=== PATIENT | male | born 1995 | race Caucasian/White ===

== ENCOUNTER 2021-11-30 10:13 | Emergency (ER) | payer BC, SELFPAY ==
[2021-11-30 10:27] VITALS: BP 153/99; PULSE 78; RESP 18; TEMP 36.3; O2SAT 100
--- NOTE | 2021-11-30 10:57 | ED.GENADULT ---
HPI - General Adult General Chief complaint: Skin/Abscess/Foreign Body Stated complaint: boil on waistline Source: patient Mode of arrival: ambulatory Limitations: no limitations History of Present Illness HPI narrative: 26 y/o male. PMHx None reported. Presents to [facility] today with acute complaints of a boil located to his lower abdomen for 1 week. Client reports to have always had a hard area there for the past years or two . He states to have been further evaluated by PCP and was advised that he had issues with ingrown and coarse hairs on his abdomen. No fevers. No abdominal pain. No additional areas of integumentary involvement. Patient tells me he had self manipulated area by picking at it , of which has now led to increased tenderness and 'yellow' drainage from site. Non-diabetic. No additional acute c/o illness upon PE. Related Data Allergies Allergy/AdvReac Type Severity Reaction Status Date / Time No Known Allergies Allergy Mild Verified 11/30/21 10:33 Review of Systems Review of Systems: CONSTITUTIONAL: Denies fever, chills, sweats. EYES: Denies visual changes, redness, discharge. ENT: Denies rhinorrhea, congestion, sore throat, otalgia. CARDIOVASCULAR: Denies chest pain, palpitations, edema. RESPIRATORY: Denies dyspnea, wheezing, cough GASTROINTESTINAL: Denies abdominal pain, nausea, vomiting, diarrhea. GENITOURINARY: Denies dysuria, hematuria, abnormal discharge SKIN: Denies rash or itching. Boil to abdomen. MUSCULOSKELETAL: Denies acute back pain, joint pain, or myalgia. NEUROLOGIC: Denies numbness, or focal weakness. PSYCHIATRIC: Denies anxiety or depression. All systems reviewed & are unremarkable except as noted in HPI and below PMFSH Family History Family History Father Diabetes mellitus Other Hypertension Social History Social History Smoking status: Current every day smoker Alcohol intake: current Substance use type: marijuana Exam Narrative: GENERAL: This is a well-nourished, well-developed adult, in no apparent distress. HEAD: normocephalic, atraumatic. EYES: PERRL. Sclera clear/white. EARS: External ears normal, auditory canals clear and without drainage, TMs normal. NOSE: External nose normal. No Rhinorrhea, no obstruction, nares patent. THROAT: Mucous membranes moist, posterior pharynx clear. No exudates. NECK: Neck supple, non-tender without lymphadenopathy, masses or thyromegaly. CARDIOVASCULAR: Regular rate and rhythm without murmurs, gallops, or rubs. RESPIRATORY: Clear to auscultation. Breath sounds equal bilaterally. No wheezes, rales, or rhonchi. GASTROINTESTINAL: Abdomen soft, non-tender, nondistended. Bowel sounds are active. No guarding. SKIN: warm, intact, good texture and turgor. With 1 cm area of Folliculitis located to RT lower abdomen. There is localized surrounding erythema at follicle root. Mild central purulent discharge. No fluctuance or abscess formation. No deep signs of deep tissue disruption. NEURO: Alert, active, and age appropriate. No focal neurologic deficits. EXTREMITIES: Negative. Course Course Level of Care: Express Care Visit Vital Signs Vital signs: Vital Signs Temperature 36.3 C L 11/30/21 10:27 Pulse Rate 78 11/30/21 10:27 Respiratory Rate 18 11/30/21 10:27 Blood Pressure 153/99 H 11/30/21 10:27 Pulse Oximetry 100 11/30/21 10:27 Temperature 36.3 C L 11/30/21 10:27 Pulse Rate 78 11/30/21 10:27 Respiratory Rate 18 11/30/21 10:27 Blood Pressure 153/99 H 11/30/21 10:27 Pulse Oximetry 100 11/30/21 10:27 The patient has been informed that they may have pre-hypertension or Hypertension based on a BP reading in the clinic. It is recommended that the patient call the primary care provider listed on their discharge instructions or a physician of their choice as soon as
== END 2021-11-30 10:49 | disposition home or self-care (01) ==
PROVIDERS: Emergency Provider Nurse Practitioner Adult Health; PCP Nurse Practitioner Family
DX: L73.9 Follicular disorder, unspecified (principal); F17.200 Nicotine dependence, unspecified, uncomplicated; F12.90 Cannabis use, unspecified, uncomplicated
CPT/HCPCS: 99213; G0463

== ENCOUNTER 2022-12-24 00:56 | Emergency (ER) | payer OTHER, SELFPAY ==
[2022-12-24] VITALS (15 sets, daily range): BP systolic 111–140; BP diastolic 57–79; PULSE 68–130; RESP 18–20; TEMP 36.6–37.2; O2SAT 93–100
--- NOTE | ~2022-12-24 | CT_ITS ---
CT Abdomen and Pelvis with contrast. History: Periumbilical pain. Spiral CT of the abdomen and pelvis was performed after the administration of intravenous contrast. 1 00 cc of Omnipaque 350 was administered intravenously without complication. Dose reduction technique was used on this scan by utilizing automated exposure control and iterative reconstruction technique. The dose-length product (DLP) was 920.03 mGy-cm. Findings: Scans through the lung bases demonstrate mild atelectatic change. The liver, spleen, pancreas, gallbladder, adrenals and kidneys are within normal limits. No evidence of aortic aneurysm. No lymphadenopathy is seen. There is no evidence of bowel obstruction. There is no evidence to suggest acute appendicitis or dive rticulitis. Images through the pelvis were performed. Urinary bladder unremarkable. Prostate gland and seminal ve sicles are unremarkable. No ascites is seen. Impression: No significant abnormalities seen. Reviewed, dictated and finalized at [facility]. N GRINDER Impression: No significant abnormalities seen.
--- NOTE | ~2022-12-24 | XR_ITS ---
Portable chest x-ray Comparison: None Clinical History: Shortness of breath Findings: Lungs are clear, without focal consolidation or pleural effusion. Cardiomediastinal silho uette is unremarkable. Bones and soft tissues are unremarkable. Impression: Normal chest. Reviewed, dictated and finalized at [facility]. T TAKER Impression: Normal chest.
--- NOTE | 2022-12-24 02:08 | PC.NURSE ---
Triage note reviewed and confirmed. First encounter w/ pt. Pt c/o abd'l pain n/v. Updated pt on plan of care, awaiting ED provider.
--- NOTE | 2022-12-24 02:16 | ED.NAVMDI ---
HPI - Nausea/Vomiting/Diarrhea General Chief complaint: Nausea/Vomiting/Diarrhea <ALEXIS Lacey Last Filed: 12/24/22 03:43> Stated complaint: vomiting <ALEXIS Lacey Last Filed: 12/24/22 03:43> Time Seen by Provider: 12/24/22 02:09 <ALEXIS Lacey Last Filed: 12/24/22 03:43> History of Present Illness HPI Narrative: 27-year-old male with no medical history reports for sudden onset abdominal pain, nausea, vomiting that started 7 hours ago. Patient reports his abdominal pain is periumbilical. Reports positive sick contacts with people in the family with similar symptoms. He reports multiple episodes of vomiting and diarrhea. Denies melena, hematochezia, hematemesis. He is reporting shortness of breath. Denies cough, congestion, chest pain. Reports sore throat since he started vomiting. Patient reports he feels overall weak with body aches. Denies known fever, urinary complaints. Patient has no prior abdominal surgeries. <ALEXIS Lacey Last Filed: 12/24/22 03:43> Related Data Allergies/Adverse reactions: Allergies Allergy/AdvReac Type Severity Reaction Status Date / Time No Known Allergies Allergy Mild Verified 11/30/21 10:33 <ALEXIS Lacey Last Filed: 12/24/22 03:43> Review of Systems Review of Systems: CONSTITUTIONAL: Denies fever EYES: Denies visual changes, redness, or discharge. ENT: Denies rhinorrhea, congestion, or otalgia. CARDIOVASCULAR: Denies chest pain, palpitations, or edema. RESPIRATORY: Denies cough or dyspnea. GASTROINTESTINAL: See HPI GENITOURINARY: Denies dysuria or hematuria. SKIN: Denies rash or itching. MUSCULOSKELETAL: Denies back pain, joint pain, or myalgia. NEUROLOGIC: Denies headache, numbness, dizziness, or weakness. PSYCHIATRIC: Denies anxiety or depression. <ALEXIS Lacey Last Filed: 12/24/22 03:43> [facility] Family History Family History: Family History Father Diabetes mellitus Other Hypertension <Junie Gomez PA-C - Last Filed: 12/24/22 03:43> Social History Social History: Social History Smoking status: Current every day smoker Alcohol intake: current Substance use type: marijuana <Junie Gomez PA-C - Last Filed: 12/24/22 03:43> Exam Narrative: GENERAL: Well-appearing, well-nourished, and in no acute distress. HEAD: Normocephalic, atraumatic. EYES: PERRLA and EOMI. ENT: Nares clear, no rhinorrhea or epistaxis. Mucous membranes dry. Oropharynx without tonsillar hypertrophy exudate or other lesions. NECK: Supple. No adenopathy or masses. CHEST: Clear to auscultation. No respiratory distress. No wheezes rales or rhonchi HEART: Regular and rhythm. Tachycardic. No murmur heard. Normal peripheral pulses. ABDOMEN: Soft, nondistended, normal active bowel sounds. Tenderness and guarding to the periumbilical region. No rebound tenderness. EXTREMITIES: Normal range of motion. No edema. SKIN: Warm, dry, no rash. NEURO: No focal deficits. Alert and oriented x3. PSYCH: Normal mood and affect. <Junie Gomez PA-C - Last Filed: 12/24/22 03:43> Course Course Emergency Course: 0342: Awaiting CT scan. Patient signed out to Dr. Starr who was updated on the patient case and condition. - DIRK Wen <Junie Gomez PA-C - Last Filed: 12/24/22 03:43> [employer]PA Physician Supervision I have personally seen and evaluated the patient and made [id number] time with the patient. There is a 27-year-old gentleman who presented the emergency department with nausea vomiting and diarrhea and abdominal pain. Laboratory studies were unremarkable CT scan of the abdomen pelvis showed no evidence of acute interabdominal pathology The patient is feeling much better at this time and able to tolerate p.o. intake <Kushal Hoff
[2022-12-24] MEDS: SODIUM CHLORIDE 0.9% IV 1,000 ML 999 ML IV CONT (02:31)
[2022-12-24] MEDS: ONDANSETRON INJ 4 MG/2 ML VIAL IV PUSH (02:31)
[2022-12-24] MEDS: MORPHINE SULFATE (*CRX) 2 MG/ML INJ IV PUSH (02:31)
[2022-12-24 02:36] LABS: Basophils Percent Auto 0.3 % (0.2-1.2); Eosinophils Percent Auto 0.3 % (0-4.4); Hematocrit 42.9 % (42.0-52.0); Immature Granulocyte Absolute 0.02 K/mm3 (0.00-0.031); Immature Granulocyte Percent A 0.3 % (0-0.5); Lymphocytes Percent Auto 5.5 % (18.3-44.2); Mean Corpuscular Hemoglobin 30.7 pg (26-34); Mean Corpuscular Volume 87.9 fl (80-100); Mean Platelet Volume 10.6 fl (7.4-10.4); Monocytes Absolute Auto 0.6 K/mm3 (0.1-0.6); Monocytes Percent Auto 8.1 % (2.6-8.5); Neutrophils Absolute Auto 6.2 K/mm3 (1.3-6.7); Neutrophils Percent Auto 85.5 % (45.5-73.1); Platelet Count Result 224 k/mm3 (150-375); Red Blood Count 4.88 M/mm3 (4.6-6.20); Red Cell Distribution Width 11.9 % (11.5-14.5); White Blood Count 7.2 K/mm3 (4.5-10.0)
[2022-12-24 02:48] LABS: Alanine Aminotransferase 44 U/L (6-50); Albumin Level 5.1 g/dL (3.5-5.1); Alkaline Phosphatase 51 U/L (38-126); Anion Gap 10 mmol/L (8-16); Aspartate Amino Transferase 39 U/L (17-59); Bilirubin,Total 0.8 mg/dL (0.2-1.3); Blood Urea Nitrogen 21 mg/dL (9-20); Calcium 9.8 mg/dL (8.4-10.2); Carbon Dioxide 22 mmol/L (22-30); Chloride 109 mmol/L (98-107); Estimated CRCL calculation 124 ml/min; Estimated Glomerular Filt Rate > 60; Glucose 108 mg/dL (65-110); Lipase 117 U/L (23-300); Magnesium 1.7 mg/dL (1.6-2.3); Potassium 3.9 mmol/L (3.4-5.0); Sodium 141 mmol/L (137-145)
[2022-12-24 03:15] LABS: Influenza A QL RT-PCR Negative (Negative); Influenza B QL RT-PCR Negative (Negative); SARS-CoV-2 RNA PCR Negative
--- NOTE | 2022-12-24 03:16 | PC.NURSE ---
Updated pt on plan of care, NAD, pt resting comfortably inbed,
--- NOTE | 2022-12-24 04:02 | PC.NURSE ---
Pt states feeling a lot better. Pt resting comfortably in bed, NAD, respirations even and unlabored. Updated pt on plan of care.
[2022-12-24 05:09] LABS: Appearance Urine Clear (Clear); Bilirubin Urine Negative (Negative); Blood Urine Negative (Negative); Color Urine Yellow (Yellow); Glucose Urine UA Negative (Negative); Ketones Urine Negative (Negative); Leukocyte Esterase Ur Negative LEU/UL (Negative); Nitrate Urine Negative (Negative); Protein Urine Trace mg/dL (Negative); Specific Grav Ur 1.015 (1.001-1.035); Urobilinogen Urine 0.2 mg/dL (<2.0); pH Urine 8.5 (5.0-9.0)
[2022-12-24 05:24] LABS: Bacteria Urine Trace /hpf; Mucus Urine Rare /lpf; RBC Urine 0-2 /hpf (0-2); WBC Urine 0-3 /hpf
[2022-12-24 05:25] LABS: Add Urine Microscopic? YES
--- NOTE | 2022-12-24 06:06 | PC.NURSE ---
Pt resting comfortably inbed, NAD. Skin warm/dry.
== END 2022-12-24 06:49 | disposition home or self-care (01) ==
PROVIDERS: Physician Assistant; Emergency Provider Emergency Medicine; PCP Nurse Practitioner Family
DX: K52.9 Noninfective gastroenteritis and colitis, unspecified (principal); Z20.822 Contact with and (suspected) exposure to COVID-19; F17.200 Nicotine dependence, unspecified, uncomplicated
CPT/HCPCS: 36415; 71045; 74177; 80053; 81001; 83690; 83735; 85025; 87636; 96361; 96374; 96375; 99284; J2270; J2405; J7030; Q9967